=== PATIENT | female | born 1990 | race African-American/Black ===

== ENCOUNTER 2016-05-02 18:24 | Emergency (ER) | payer OTHER ==
--- NOTE | 2016-05-02 20:03 | PD ---
HPI Chief Complaint Heart palpitations Date Seen: May 02, 2016 Time Seen: 19:45 Travel History International Travel<30 Days: No Contact w/Intl Traveler<30Days: No Known Affected Area: No History of Present Illness HPI Patient is a 25-year-old female who is at 17 weeks 6 days who is brought here due to heart palpitations. Patient was shopping at [employer] and she was running from security. The ambulance was called because it was found that she was and that she had been running. The ambulance noted that her blood pressure was elevated her pulse was elevated after patient was caught so she was brought here for evaluation. Patient has no current complaints. She gets her care in [place] and she is planning on driving back to [facility] Para: 4 : 6 Miscarriage: 1 History Past Medical History Narrative Medical Hypertension in 2 prior pregnancies. Some hypertension was noted between pregnancies Past Surgical History Narrative Surgical 2 sections and 2 vaginal deliveries A D&C Family History Family History: chronic hypertension Social History Alcohol Use: No Tobacco Use: No Substance Abuse: No Allergies-Medications (Allergen,Severity, Reaction): Coded Allergies: No Known Allergies (Unverified , 05/02/16) Review of Systems Except as stated in HPI: all other systems reviewed are Neg Physical Exam Narrative GENERAL: Well-nourished, well-developed patient. SKIN: Warm and dry. HEAD: Normocephalic and atraumatic. EYES: No scleral icterus. No injection or drainage. ENT: No nasal drainage noted. Mucous membranes pink. Airway patent. NECK: Supple, trachea midline. No JVD. CARDIOVASCULAR: Regular rate and rhythm without murmurs, gallops, or rubs. RESPIRATORY: Breath sounds equal bilaterally. No accessory muscle use. BREASTS: Bilateral exam showed no masses , no retractions, no nipple discharge. ABDOMEN/GI: Abdomen soft, non-tender, bowel sounds present, no rebound, no guarding Gravid to [-] weeks size Fundal Height: [-16] GENITOURINARY: External Genitalia: intact and normal in appearance BUS glands: Normal Cervix: - Dilatation: - Effacement: - Station: [-] Presentation: [-] Membranes: [intact or ruptured] Uterine Contractions: [-] None FHT's: Category: [-] 152 by Doppler Baseline: [-] Reactive: [-] Variability: [-] Decels: [-] EXTREMITIES: No cyanosis or edema. BACK: Nontender without obvious deformity. No CVA tenderness. NEUROLOGICAL: Awake and alert. Motor and sensory grossly within normal limits. Five out of 5 muscle strength in all muscle groups. Normal speech. Data Data Vital Signs Reviewed: Yes [facility] Medical Record Reviewed: No Plan Discharge home with follow-up to her OB in [place] Diagnosis Diagnosis: Primary Impression: History of pre-eclampsia in prior , currently in second trimester Additional Impressions: Previous delivery affecting 17 weeks gestation of Disposition: 01 DISCHARGE HOME Nola Chaidez MD May 02, 2016 20:03
== END 2016-05-02 22:23 | disposition home or self-care (01) ==
LOC: HOBED 18:24
DX: O99.412 Diseases of the circulatory system complicating pregnancy, second trimester (principal); Z3A.17 17 weeks gestation of pregnancy
CPT/HCPCS: 99284